=== PATIENT | female | born 1990 | race Asian ===

== ENCOUNTER 2016-02-26 18:21 | Inpatient (IN) | payer MEDICAID ==
[~2016-02-26] VITALS: Ht 157.5 cm; Wt 95.5 kg
[~2016-02-26 18:21] MED LIST: PREN-148 PO
--- OUTSIDE RECORDS SUMMARY | 2016-02-26 19:03 | XMS REPORT | Summary of Care ---
Author Author Diandra Jensen M.D. 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 Name Role Phone No Assigned PCP-Pt Confirmed Unavailable Unavailable Functional Status Name Dates Details Functional status health issues are not documented Status: Name Dates Details Cognitive status health issues are not documented Status: Problems Name Dates Details Encounter for supervision of normal in multigravida in second trimester (V22.1, Z34.82) Status: Active Encounter for supervision of normal in multigravida in third trimester (V22.1, Z34.83) Status: Active Medications Name Dates Details Vitamin TABS Refills: 0 Active Allergies and Adverse Reactions Name Dates Details No Known Drug Allergies (Allergy) Status: Active Past Medical History Name Dates Details History of Encounter for supervision of normal in multigravida in second trimester (V22.1, Z34.82) Status: Resolved Procedures Procedure Dates Details Procedures not documented Immunization Name Dates Details Tdap (Adacel) Lot #: [id number] on: 08-Dec-2015 Family History Name Dates Details No pertinent family history Status: Active Social History Name Dates Details - Status: Name Dates Details Former smoker Vital Signs Date Test Result Details 26-Jan-2016 09:26 BP Systolic 102 mm[Hg] Status: Comments: Location: ; Position: BP Diastolic 52 mm[Hg] Status: Comments: Location: ; Position: Weight 205 lb Status: Body Mass Index Calculated 35.19 kg/m2 Status: Body Surface Area Calculated 1.98 m2 Status: 19-Jan-2016 09:48 BP Systolic 140 mm[Hg] Status: Comments: Location: ; Position: BP Diastolic 64 mm[Hg] Status: Comments: Location: ; Position: Weight 204 lb Status: Body Mass Index Calculated 35.02 kg/m2 Status: Body Surface Area Calculated 1.97 m2 Status: 06-Jan-2016 09:53 BP Systolic 120 mm[Hg] Status: Comments: Location: ; Position: BP Diastolic 68 mm[Hg] Status: Comments: Location: ; Position: Weight 202 lb Status: Body Mass Index Calculated 34.67 kg/m2 Status: Body Surface Area Calculated 1.96 m2 Status: Results Date Description Value Details 20-Jan-2016 10:38 Gp B Strep ( GBS) 5031 Comments: Penicillin Allergy: No Gp B Strep POSITIVE (Abnormal) Range: Negative Plan of Care Name Dates Details Planned Observations Planned Goals not documented Planned Encounters Appointment; Provider: Diandra Jensen M.D. On 17-Feb-2016 08:45 Appointment; Provider: Diandra Jensen M.D. On 10-Feb-2016 08:45 Appointment; Provider: Diandra Jensne M.D. On 03-Feb-2016 08:45 Instructions Name Dates Details Instructions not documented Encounters Appointment; Diandra Jensen M.D. Encounter Diagnosis: Problem not documented On 26-Jan-2016 09:15 Appointment; Diandra Jensen M.D. Encounter Diagnosis: Problem not documented On 19-Jan-2016 09:30 Appointment; Diandra Jensen M.D. Encounter Diagnosis: Problem not documented On 06-Jan-2016 09:45 Appointment; Diandra Jensen M.D. Encounter Diagnosis: Problem not documented On 22-Dec-2015 15:00 Appointment; Diandra Jensen M.D. Encounter Diagnosis: Problem not documented On 08-Dec-2015 15:00 Appointment; Diandra Jensen M.D. Encounter Diagnosis: Problem not documented On 27-Nov-2015 13:00 Appointment; Diandra Jensen M.D. Encounter Diagnosis: Problem not documented On 25-Nov-2015 09:00 Appointment; Diandra Jensen M.D. Encounter Diagnosis: Problem not documented On 04-Nov-2015 09:45 Appointment; Diandra Jensen M.D. Encounter Diagnosis: Problem not documented On 09-Oct-2015 10:15 Appointment; Diandra Jensen M.D. Encounter Diagnosis: Problem not documented On 09:30
[2016-02-26 19:15] VITALS: BP 130/70
[2016-02-26] MEDS ORDERED: SODIUM CHLORIDE FLUSH 10 ML ONE (19:23)
[2016-02-26] MEDS ORDERED: OXYTOCIN INJ 20 UNIT in NS 1000ml 1,000 ML IV PRN (19:31)
[2016-02-26] MEDS ORDERED: CALCIUM CARBONATE CHEWABLE 300 MG (TUMS) TABLET PO PRN (19:35)
[2016-02-26] MEDS ORDERED: SODIUM CHLORIDE FLUSH 10 ML SYR IV PRN (19:35)
[2016-02-26 19:54] LABS: MEAN PLATELET VOLUME 10.8 FL (6.0-9.5); WHITE BLOOD COUNT 11.6 10^3uL (4.0-11.0)
[2016-02-26] MEDS: LACTATED RINGERS 1,000 ML IV SCH (20:10)
[2016-02-26] MEDS: MISOPROSTOL 25 MCG (CYTOTEC) TABLET PV SCH (20:12)
[2016-02-26 20:15] VITALS: BP 130/60
[2016-02-26 21:23] VITALS: BP 119/74
--- NOTE | 2016-02-26 21:45 | History and Physical (E) ---
History & Physical (OB) Subjective: CC:Induction HPI: 25 y/o at 41+2 WGA by LMP confirmed by 13 week sono admitted for cervical ripening then induction tomorrow for post term . Today she reports rare contractions, normal movement, and no leaking or bleeding. She is GBS+. PNC:[facility] until this week, then transferred to [facility] OB Hx:SAB x1 PMHx:none PSHx:none Allergies: Coded Allergies: latex (Verified Allergy, Mild, Rash, 02/25/16) Home Medications: Reported Medications Vit #76/Iron,Carb/Fa (Pnv 29-1 Tablet)1 Each Tablet1 Each PO DAILY 02/25/16 Objective: Vital Signs Date Time Temp Pulse Resp B/P Pulse Ox O2 Delivery O2 Flow Rate FiO2 02/26/16 19:15 99.0 97 16 130/70 Laboratory Results Past 24 Hrs 02/26/16 19:20: Hematocrit 38.80, Hemoglobin 13.2, Mean Corpuscular Hemoglobin 27.0, Mean Corpuscular Hemoglobin Concent 34.0, Mean Corpuscular Volume 79, Mean Platelet Volume 10.8, Platelet Count 242, Red Blood Count 4.89, Red Cell Distribution Width 13.7, White Blood Count 11.60 General: Alert and oriented, NAD Chest: CTA Abdomen: Gravid Cardiovasular: RRR, No murmur Extremities: No edema FHT's:130, reactive, reassuring Cx:1-2/50/-3 Holiday:rare contractions, q 5-8 minutes. Screenings: Blood type: A Positive, Rubella Immune, RPR non-reactive, HBV Negative, HIV Negative , GBS Positive. Problems/Plans: (1) with 41 completed weeks gestation (2) GBS (group B Streptococcus carrier), +RV culture, currently Start misoprostol cervical ripening, plan on 3 doses. Then induction with oxytocin. Risks of induction again reviewed. Start GBS prophylaxis when in labor or on oxytocin. Anticipate . Additional Copies to: End of Report . SAMIR KOVACS MD Feb 26, 2016 21:44
[2016-02-26 22:15] VITALS: BP 129/78
[2016-02-26 23:15] VITALS: BP 110/58
[2016-02-27] VITALS (39 sets, daily range): BP systolic 95–158; BP diastolic 52–92
[2016-02-27] MEDS: MISOPROSTOL 25 MCG (CYTOTEC) TABLET PV SCH ×2 (00:27→04:35)
[2016-02-27] MEDS ORDERED: NALBUPHINE 10 MG/ML (NUBAIN) 1 ML AMP IV ONE (05:45)
[2016-02-27] MEDS: LACTATED RINGERS 1,000 ML IV SCH ×3 (06:45→13:29)
[2016-02-27] MEDS ORDERED: AMPICILLIN INJ 2,000 MG in SODIUM CHLORIDE 100 ML IV SCH (07:20)
[2016-02-27] MEDS ORDERED: AMPICILLIN 2000 MG VIAL ONE (07:21)
[2016-02-27] MEDS ORDERED: SODIUM CHLORIDE 100 ML ONE (07:21)
[2016-02-27] MEDS ORDERED: NALBUPHINE 10 MG/ML (NUBAIN) 1 ML AMP IV PRN (09:00)
[2016-02-27] MEDS ORDERED: OXYTOCIN INJ 20 UNIT in NS 1000ml 1,000 ML IV SCH (09:00)
--- NOTE | 2016-02-27 09:08 | Progress Note-A/P (E) ---
Progress Note Subjective Subjective at 41+3 now S/P misoprostol x3 doses, doing well. Normal movement. Having mild to moderate contractions, did have Nubain x1 dose at 0600. Had clear liquid breakfast, declines shower for now. Objective VS Vital Signs Date Time Temp Pulse Resp B/P Pulse Ox O2 Delivery O2 Flow Rate FiO2 02/27/16 08:00 97.8 78 18 125/75 Current Medications Current Medications Oxytocin/Sodium Chloride (Pitocin Inj/NS 1000ml) 1,002 ml @ 250 mls/hr Q4H1M PRN IV; Start 02/26/16 at 19:31 Calcium Carbonate (Tums) 1-2 tablets PO q4 ho... Q4H PRN PO; Start 02/26/16 at 19:35 Sodium Chloride 10 ml 10 ml PRN PRN IV; Start 02/26/16 at 19:35 Lactated Ringer's 1,000 ml @ 125 mls/hr Q8H IV Last administered on 02/27/16at 06:45; Admin Dose 125 MLS/HR; Start 02/26/16 at 19:55 Ampicillin Sodium/ Sodium Chloride (Ampicillin Inj/ NS (Ivpb)) 100 ml @ 200 mls /hr ROM/ActiveLaborx1 IV Last administered on 02/27/16at 07:25; Admin Dose 200 MLS/HR; Start 02/27/16 at 07:20; Stop 02/28/16 at 19:19 General Awake, alert, oriented to person, place, and situation. NAD at present HEENT EOMI, PERRL CV RRR, S1 S2 audible Lungs Clear No rales, rhonchi or wheezes Abdomen Soft non distended, no tenderness to palpation, no masses. FHR 135, reactive, reassuring. VE 2/75/-3. Extremities No edema Integumentary No unusual findings Neuro No focal motor neuro deficits Labs, Most Recent- Laboratory Results Past 24 Hrs 02/26/16 19:20: Hematocrit 38.80, Hemoglobin 13.2, Mean Corpuscular Hemoglobin 27.0, Mean Corpuscular Hemoglobin Concent 34.0, Mean Corpuscular Volume 79, Mean Platelet Volume 10.8, Platelet Count 242, Red Blood Count 4.89, Red Cell Distribution Width 13.7, White Blood Count 11.60 24 Hr Result Diagram CBC BMP Last 24 Hrs 02/26/16 19:20 Assessment at 41+3. Post due date, will start augmentation with oxytocin to achieve adequate labor. Start Ampicillin for GBS prophylaxis. Anticipate . SAMIR KOVACS MD Feb 27, 2016 09:08
[2016-02-27] MEDS ORDERED: ROPIVACAINE 1% 10 MG/ML (NAROPIN) 20 ML AMPUL ONE ×2 (11:10→11:44)
[2016-02-27] MEDS: AMPICILLIN INJ 1,000 MG in SODIUM CHLORIDE 50 ML IV SCH ×2 (11:30→15:19)
[2016-02-27] MEDS ORDERED: TERBUTALINE 1 MG/ML (BRETHINE) 1 ML AMP ONE (13:21)
--- NOTE | 2016-02-27 13:25 | Progress Note-A/P (E) ---
Progress Note Subjective Subjective Now in active labor, epidural in place and functioning. heartrate reactive, although at 1308 the patient had 5 contractions without relaxation, and response with change in baseline to 90 and increased variability. Pitocin stopped, repositioned, oxygen applied, fluid bolus given. scalp electrode place, and VE showed 7/100/0 station and rapid change. Uterine relaxation occured, and heart rate returned to 130, and average variability without deceleration by 1320. We will continue to monitor, and anticipate . Objective VS Vital Signs Date Time Temp Pulse Resp B/P Pulse Ox O2 Delivery O2 Flow Rate FiO2 02/27/16 09:45 67 105/64 02/27/16 08:00 97.8 18 Current Medications Current Medications Oxytocin/Sodium Chloride (Pitocin Inj/NS 1000ml) 1,002 ml @ 250 mls/hr Q4H1M PRN IV; Start 02/26/16 at 19:31 Calcium Carbonate (Tums) 1-2 tablets PO q4 ho... Q4H PRN PO; Start 02/26/16 at 19:35 Sodium Chloride 10 ml 10 ml PRN PRN IV; Start 02/26/16 at 19:35 Lactated Ringer's 1,000 ml @ 125 mls/hr Q8H IV Last administered on 02/27/16at 11:02; Admin Dose 125 MLS/HR; Start 02/26/16 at 19:55 Ampicillin Sodium 2000 mg/Sodium Chloride 100 ml @ 200 mls/hr ROM/ ActiveLaborx1 IV Last administered on 02/27/16at 07:25; Admin Dose 200 MLS/HR; Start 02/27/16 at 07:20; Stop 02/28/16 at 19:19 Oxytocin/Sodium Chloride (Pitocin Inj/NS 1000ml) 1,002 ml @ 0 mls/hr Q0M IV Last administered on 02/27/16at 09:17; Admin Dose 3 MLS/HR; Start 02/27/16 at 09:00 Nalbuphine HCl (Nubain) 10 mg Q2H PRN IV Last administered on 02/27/16at 09:32 ; Admin Dose 10 MG; Start 02/27/16 at 09:00 General Awake, alert, oriented to person, place, and situation. NAD at present HEENT EOMI, PERRL CV RRR, S1 S2 audible Lungs Clear No rales, rhonchi or wheezes Abdomen Soft non distended, no tenderness to palpation, no masses. Extremities No edema Integumentary No unusual findings Neuro No focal motor neuro deficits Labs, Most Recent- Laboratory Results Past 24 Hrs 02/26/16 19:20: Hematocrit 38.80, Hemoglobin 13.2, Mean Corpuscular Hemoglobin 27.0, Mean Corpuscular Hemoglobin Concent 34.0, Mean Corpuscular Volume 79, Mean Platelet Volume 10.8, Platelet Count 242, Red Blood Count 4.89, Red Cell Distribution Width 13.7, White Blood Count 11.60 02/27/16 10:25: Membranes Rupture (PAMG-1) Positive 24 Hr Result Diagram CBC BMP Last 24 Hrs 02/26/16 19:20 SAMIR KOVACS MD Feb 27, 2016 13:25
--- NOTE | 2016-02-27 16:24 | Progress Note (E) ---
Progress Note Progressing well. Now complete and after 1 hour of passive descent, we are pushing with contractions well. [place] position, FHR 135, average variability, no significant decelerations. Reassuring. pitocin at 3mu/min. Anticipate . SAMIR KOVACS MD Feb 27, 2016 16:24
--- NOTE | 2016-02-27 18:08 | Vaginal Delivery Summary (E) ---
Vaginal Delivery Summary At 18:59 on 02/26/16 this 25 year old G 1 now P1 presented to the Labor and Delivery Unit at 41&2 weeks gestation. The patient presented for care at 13 weeks and ultrasound at that time confirmed dates. This complications: None Maternal labs: Blood type: A Positive, Hgb , Rubella Immune, RPR non-reactive, HBV Negative, HIV Negative , GBS Positive. Tdap booster received on 2015. She presented for cervical ripening and post due date . . At presentation, she was 1 cm dilated. On 02/27/16 at 10:15, SROM occured with Clear fluid returned. Epidural was placed at 11:58 by Willian Chau CRNA, with good pain relief. Ampicillin given x3 doses for prophylaxis. Spontaneous delivery at 1740 of vertex, liveborn male, vigorous and crying. Intact placenta delivered over intact perineum. Bilateral labial tears repaired with 2.0 vicryl figure of eight sutures. No complications. Blood loss 250cc. SAMIR KOVACS MD Feb 27, 2016 18:08
[2016-02-27] MEDS ORDERED: M-M-R II (MEASLES,MUMPS,RUBELLA) VACCINE SC SCH (18:10)
[2016-02-27] MEDS ORDERED: HYDROcodone/APAP 5 MG/325 MG (NORCO) TAB PO PRN (18:10)
[2016-02-27] MEDS ORDERED: LANOLIN OINTMENT 28 GM TUBE TOP PRN (18:10)
[2016-02-27] MEDS: DOCUSATE SODIUM 100 MG (COLACE) CAP PO SCH (21:52)
[2016-02-28] MEDS: IBUPROFEN 600 MG (MOTRIN) TAB PO PRN ×3 (00:15→21:19)
[2016-02-28 08:30] VITALS: BP 112/64
--- NOTE | 2016-02-28 09:39 | NUR ---
Pt instructed on pumping at this time and verbalizes understanding.
--- NOTE | 2016-02-28 09:58 | Progress Note (E) ---
Post- Progress Note Subjective: 25 y/o s/p post due date , doing well. Normal lochia, ambulating, tolerating PO, pain controlled. Objective: Vital Signs Date Time Temp Pulse Resp B/P Pulse Ox O2 Delivery O2 Flow Rate FiO2 02/27/16 19:45 89 16 121/58 98 Room air 02/27/16 17:00 98.5 I & O 02/27/16 02/28/16 18:59 06:59 Intake Total 5355 ml Output Total 1050 ml 400 ml Balance 4305 ml -400 ml Laboratory Tests 02/27/16 10:25: Membranes Rupture (PAMG-1) Positive 02/28/16 07:10: Hematocrit 36.40, Hemoglobin 12.2 Blood type: A Positive, Current Medications Calcium Carbonate (Tums) 1-2 tablets PO q4 ho... Q4H PRN PO; Start 02/26/16 at 19:35 Ibuprofen (Motrin) 600 mg Q6H PRN PO Last administered on 02/28/16at 00:15; Admin Dose 600 MG; Start 02/27/16 at 18:10 Docusate Sodium (Colace Cap) 100 mg HS PO Last administered on 02/27/16at 21:52 ; Admin Dose 100 MG; Start 02/27/16 at 21:00 Lanolin (Lanolin Ointment) 28 gm PRN PRN TOP; Start 02/27/16 at 18:10 Acetaminophen/ Hydrocodone Bitart ([place] 5 Mg/325 Mg) Total acetaminophen not... Q4H PRN PO; Start 02/27/16 at 18:10 General: Alert and oriented, NAD Abdomen: Soft, non-distended, fundus firm Extremities: No edema Cardiovascular: RRR, No murmur Problems/Plans: (1) with 41 completed weeks gestation (2) GBS (group B Streptococcus carrier), +RV culture, currently Comment Hgb 12.2. S/P , doing well. anicipate discharge tomorrow. SAMIR KOVACS MD Feb 28, 2016 09:57
[2016-02-28 21:00] VITALS: BP 110/62
[2016-02-28] MEDS: DOCUSATE SODIUM 100 MG (COLACE) CAP PO SCH (21:18)
[2016-02-29] MEDS: IBUPROFEN 600 MG (MOTRIN) TAB PO PRN (08:34)
[2016-02-29 08:40] VITALS: BP 120/75
--- NOTE | 2016-02-29 14:26 | Discharge Summary (E) ---
OB Discharge Summary Admit Date/Time Feb 26, 2016 at 18:59 Discharge Date/Time 02/29/16 Admitting Provider Samir Kovacs MD Primary Care Provider Attending Provider Samir Kovacs MD Consulting Provider Procedures of viable male on 02/27/16 without complication. Admission Diagnosis Post due date, GBS +. History and Present Illness See History and Physical for complete details. Hospital Course and Treatment Cervical ripening over 02/25 pm. Augmentation with pitocin on 02/26. as per above. course uncomplicated, Hgb stable at 13.2. Discharge home PPD#2 with F/U 6 weeks. Discharge Physicial Exam General Alert and oriented, NAD Abdomen Soft, non-distended, fundus firm Extremities No edema Cardiovascular: RRR, No murmur Discharge Disposition Home Instructions Call for F/u 6 weeks. Nothing per vagina 6 weeks. No lifting >20 lbs for 2 weeks. No soaking tubs 2 weeks. Call with severe bleeding, fever, pain. Diet Regular Discharge Diagnosis Problems/Plans: (1) with 41 completed weeks gestation (2) GBS (group B Streptococcus carrier), +RV culture, currently Copies to: End of Report . SAMIR KOVACS MD Feb 29, 2016 14:26
[2016-02-29] MEDS ORDERED: HYDR-33 PO (14:27)
--- NOTE | 2016-02-29 15:15 | NUR ---
Dismissed to home. Accompanied from dept by family and this nurse. Has all belongings and discharge instructions.
== END 2016-02-29 15:15 | disposition home or self-care (01) | DRG 775 ==
LOC: OB 18:59
PROVIDERS: ADMIT Obstetrics & Gynecology; ATTEND Obstetrics & Gynecology
PROC: 3E0P7GC Introduction of Other Therapeutic Substance into Female Reproductive, Via Natural or Artificial Opening (ICD-10-PCS; principal; 2016-02-26)
PROC: 10E0XZZ Delivery of Products of Conception, External Approach (ICD-10-PCS; 2016-02-27)
PROC: 0UQMXZZ Repair Vulva, External Approach (ICD-10-PCS; 2016-02-27)
DX: O48.0 Post-term pregnancy (principal); O99.824 Streptococcus B carrier state complicating childbirth; O70.0 First degree perineal laceration during delivery; Z3A.41 41 weeks gestation of pregnancy; Z37.0 Single live birth
CPT/HCPCS: 36415; 84112; 85014; 85018; 85027; 86850; 86900; 86901

== ENCOUNTER → 2016-04-02 | Outpatient (REF) | payer MEDICAID | LOC: LAB 12:15 | PROVIDERS: ATTEND Obstetrics & Gynecology | DX: Z39.2 Encounter for routine postpartum follow-up (principal) | CPT/HCPCS: 87491 ==

== ENCOUNTER → 2016-07-22 | Outpatient (CLI) | payer MEDICAID ==
[~2016-07-22] MED LIST changes: +HYDR-33 PO
--- NOTE | 2016-07-22 14:50 | Diagnostic Imaging Report ---
INDICATION: Dysfunctional uterine bleeding. TECHNIQUE: Multiple real time harris scale sonographic images were obtained of the pelvis transabdominally and endovaginally. FINDINGS: UTERUS/ENDOMETRIUM: Uterus measures 10.6 x 3.5 x 6.0 cm. Uterus appearing unremarkable. Intrauterine contraceptive device is present. This does appear to be somewhat low in position in the lower uterine segment not visualized within the more typical fundal location of the uterus. This obscures assessment of the endometrial lining but overall it appears to be normal thickness given limitations. RIGHT OVARY: 3.1 x 2.1 x 1.9 cm. LEFT OVARY: 2.4 x 1.1 x 1.7 cm. There are multiple follicles of both ovaries, likely physiologic. No dominant cystic mass. No abnormal concerning mass. Vascular flow is demonstrated to both ovaries. No significant free pelvic fluid. IMPRESSION: 1. Intrauterine contraceptive device is present but does appear to be somewhat lower in position than typically demonstrated. 2. Bilateral ovarian follicles, likely physiologic. Dictated by: Dictated on workstation # [id number]
== END ==
LOC: RAD 10:56
PROVIDERS: ATTEND Obstetrics & Gynecology
DX: N93.8 Other specified abnormal uterine and vaginal bleeding (principal); Z30.431 Encounter for routine checking of intrauterine contraceptive device
CPT/HCPCS: 76830; 76856